=== PATIENT | female | born 1950 | race Caucasian/White ===

== ENCOUNTER → 2020-06-24 11:29 | Outpatient (CLI) | payer MEDICARE, SELFPAY ==
--- NOTE | ~2020-06-24 | MM_ITS ---
EXAMINATION: MM screening monet BI w josie HISTORY: Screening TECHNIQUE: Craniocaudal and mediolateral oblique 3-D tomosynthesis images were obtained and synthetic 2-D images were generated. CAD analysis was submitted and interpreted. COMPARISON: Comparison to multiple prior studies sequentially, with oldest reviewed study dated 04/2013. BREAST PARENCHYMAL COMPOSITION: There are scattered areas of fibroglandular density. FINDINGS: There is no evidence of suspicious mass, calcification, or architectural distortion to sugg est malignancy in either breast. There has been no suspicious interval change. IMPRESSION: 1. No mammographic evidence of malignancy. 2. Recommend routine screening mammography in one year. BI-RADS Category 1: Negative Reviewed, dictated and finalized at location A.
== END ==
PROVIDERS: PCP Physician Assistant; Visit Provider Physician Assistant
DX: Z12.31 Encounter for screening mammogram for malignant neoplasm of breast (principal)
CPT/HCPCS: 77063; 77067

== ENCOUNTER → 2021-06-29 09:59 | Outpatient (CLI) | payer MEDICARE, SELFPAY ==
--- NOTE | ~2021-06-29 | MM_ITS ---
EXAMINATION: MM screening [facility] BI w josie HISTORY: Screening mammogram TECHNIQUE: Craniocaudal and mediolateral oblique 3-D tomosynthesis images were obtained and synthetic 2-D images were generated. CAD analysis was submitted and interpreted. COMPARISON: 06/24/2020, 05/03/2019, 12/10/2015 BREAST PARENCHYMAL COMPOSITION: The breasts are almost entirely fatty. FINDINGS: Left breast asymmetries on the mediolateral oblique and appearance similar to comparison ma mmograms. There is no evidence of suspicious mass, calcification, or architectural distortion to sugg est malignancy in either breast. There has been no suspicious interval change. IMPRESSION: 1. No mammographic evidence of malignancy. 2. Recommend routine screening mammography in one year. BI-RADS Category 2: Benign finding(s). Reviewed, dictated and finalized at location A.
== END ==
PROVIDERS: PCP Physician Assistant; Visit Provider Physician Assistant
DX: Z12.31 Encounter for screening mammogram for malignant neoplasm of breast (principal)
CPT/HCPCS: 77063; 77067

== ENCOUNTER → 2022-07-30 12:18 | Outpatient (CLI) | payer MEDICARE, SELFPAY ==
--- NOTE | ~2022-07-30 | DEXA_ITS ---
Bone Density Report Name: ROCÍO HOOPER Age: 72 Sex: Female Ethnicity: White Date of : 1950 Indication: osteopenia; parental hip fracture; height loss; hysterectomy; postmenopausal Referring Provider: LEANNA, VENKAT Study: Bone densitometry was performed. Exam Date: July 30, 2022 Accession number: [id number] Bone Density: Region BMD T-score Z-score Classification AP Spine (L1-L4) 0.828 -2.0 0.1 Osteopenia Femoral Neck (Left) 0.676 -1.6 0.2 Osteopenia Total Hip (Left) 0.956 0.1 1.6 Normal Femoral Neck (Right) 0.643 -1.9 -0.1 Osteopenia Total Hip (Right) 0.818 -1.0 0.5 Normal Total Hip Mean 0.887 -0.5 1.1 Normal World Health Organization criteria for BMD impression classify patients as: Normal (T-score at or above -1.0), Osteopenia (T-score between -1.0 and -2.5), or Osteoporosis (T-score at or below -2.5). 10-year Fracture Risk(1): Major Osteoporotic Fracture 15% Hip Fracture 3.3% Reported Risk Factors: [place] (), Neck BMD=0.643, BMI=41.5, parental fracture (1) FRAX(R) Version 3.08. Fracture probability calculated for an untreated patient. Fracture probability may be lower if the patient has received treatment. Previous Exams: Region Exam Age BMD T-score BMD Change BMD Change Date g/cm2 vs Baseline vs Previous AP Spine(L1-L4) 07/30/2022 72 0.828 -2.0 -0.052* -0.037* 12/10/2015 65 0.865 -1.7 -0.015 0.014 09/19/2013 63 0.851 -1.8 -0.029 -0.029 04/22/2008 57 0.879 -1.5 Total Hip(Left) 07/30/2022 72 0.956 0.1 -0.063* -0.004 12/10/2015 65 0.959 0.1 -0.059* -0.002 09/19/2013 63 0.962 0.2 -0.057 -0.057 04/22/2008 57 1.018 0.6 Total Hip(Right) 07/30/2022 72 0.818 -1.0 -0.181* -0.067* 12/10/2015 65 0.885 -0.5 -0.114* 0.021 09/19/2013 63 0.864 -0.6 -0.134 -0.134 04/22/2008 57 0.999 0.5 *Denotes significance at 95% confidence level, LSC for AP Spine = 0.022 g/cm2, LSC for Total Hip = 0.027 g/cm2 Clinical Information Provided by Patient: Parent has had a hip fracture Has used the following medications: Vitamin D, Calcium Has the following medical conditions: Hysterectomy Patient maximum height was 63 Menopause Age: 49 No regular weight bearing exercise Does not regularly consume dairy products Drinks caffeinated beverages Onset of menses at age 14 Number of
--- NOTE | ~2022-07-30 | MM_ITS ---
EXAMINATION: MM screening [facility] BI w josie HISTORY: Screening mammogram TECHNIQUE: Craniocaudal and mediolateral oblique 3-D tomosynthesis images were obtained and synthetic 2-D images were generated. CAD analysis was submitted and interpreted. COMPARISON: 06/29/2021, 06/24/2020, 05/11/2019 bilateral screening mammogram examinations BREAST PARENCHYMAL COMPOSITION: There are scattered areas of fibroglandular density. FINDINGS: There is no evidence of suspicious mass, calcification, or architectural distortion to sugg est malignancy in either breast. There has been no suspicious interval change. IMPRESSION: 1. No mammographic evidence of malignancy. 2. Recommend routine screening mammography in one year. BI-RADS Category 1: Negative Reviewed, dictated and finalized at location A.
== END ==
PROVIDERS: PCP Physician Assistant; Visit Provider Physician Assistant
DX: Z12.31 Encounter for screening mammogram for malignant neoplasm of breast (principal); Z78.0 Asymptomatic menopausal state; M85.88 Other specified disorders of bone density and structure, other site; M85.852 Other specified disorders of bone density and structure, left thigh; M85.851 Other specified disorders of bone density and structure, right thigh
CPT/HCPCS: 77063; 77067; 77080

== ENCOUNTER → 2023-08-23 10:15 | Outpatient (CLI) | payer MEDICARE, SELFPAY ==
--- NOTE | ~2023-08-23 | MM_ITS ---
EXAMINATION: MM screening [facility] BI w josie HISTORY: Screening mammogram TECHNIQUE: Craniocaudal and mediolateral oblique 3-D tomosynthesis images were obtained and synthetic 2-D images were generated. CAD analysis was submitted and interpreted. COMPARISON: 07/30/2022, 06/29/2021, 06/24/2020 BREAST PARENCHYMAL COMPOSITION:The breasts are almost entirely fatty FINDINGS: Right breast biopsy marker is unchanged. No suspicious mass, calcification, or architectura l distortion are identified in either breast to suggest malignancy. There has been no suspicious inte rval change. IMPRESSION: No mammographic evidence of malignancy. Recommend routine screening mammography in one year. BI-RADS Category 1: Negative Reviewed, dictated and finalized at location .
== END ==
PROVIDERS: PCP Physician Assistant; Visit Provider Physician Assistant
DX: Z12.31 Encounter for screening mammogram for malignant neoplasm of breast (principal)
CPT/HCPCS: 77063; 77067

== ENCOUNTER 2024-10-30 14:56 | Outpatient (CLI) | payer MEDICARE, SELFPAY ==
--- NOTE | ~2024-10-30 | MM_ITS ---
EXAMINATION: MM screening [facility] BI w josie HISTORY: Screening TECHNIQUE: Craniocaudal and mediolateral oblique 3-D tomosynthesis images were obtained and synthetic 2-D images were generated. CAD analysis was submitted and interpreted. COMPARISON: Comparison to multiple prior studies sequentially, with oldest reviewed study dated 05/11. BREAST PARENCHYMAL COMPOSITION: Not dense: There are scattered areas of fibroglandular density. FINDINGS: There is no evidence of suspicious mass, calcification, or architectural distortion to sugg est malignancy in either breast. There has been no suspicious interval change. IMPRESSION: 1. No mammographic evidence of malignancy. 2. Recommend routine screening mammography in one year. BI-RADS Category 1: Negative Reviewed, dictated and finalized at location B. WICH MAKER
--- NOTE | ~2024-10-30 | DEXA_ITS ---
Bone Density Report Name: ROCÍO HOOPER Age: 74 Sex: Female Ethnicity: White Date of : 1950 Indication: postmenopausal; screening for osteoporosis; parental hip fracture; height loss; hysterectomy; Referring Provider: LEANNA, VENKAT Study: Bone densitometry was performed. Exam Date: October 30, 2024 Accession number: [id number] Bone Density: Region BMD T-score Z-score Classification AP Spine(L1-L4) 0.866 -1.6 0.6 Osteopenia Femoral Neck (Left) 0.590 -2.3 -0.4 Osteopenia Total Hip (Left) 0.901 -0.3 1.3 Normal Femoral Neck (Right) 0.563 -2.6 -0.7 Osteoporosis Total Hip (Right) 0.743 -1.6 0.0 Osteopenia Total Hip Mean 0.822 -1.0 0.7 Normal World Health Organization criteria for BMD impression classify patients as: Normal (T-score at or above -1.0), Osteopenia (T-score between -1.0 and -2.5), or Osteoporosis (T-score at or below -2.5). 10-year Fracture Risk: FRAX not reported because: Some T-score for Spine Total or Hip Total or Femoral Neck at or below -2.5 Clinical Information Provided by Patient: Parent has had a hip fracture Has used the following medications: Vitamin D, Calcium Has the following medical conditions: Hysterectomy Patient maximum height was 64 Menopause Age: 49 No regular weight bearing exercise Does not regularly consume dairy products Drinks caffeinated beverages Onset of menses at age 14 Number of children 2 Impression: The patient has osteoporosis, based on the Right Femoral Neck T-score. The patient has risk factors, including: parental hip fracture. Discussion: INCREASED RISK OF FRACTURE. BONE DENSITY IS UNDESIRABLY LOW AT ONE OR MORE SKELETAL SITES, CONSISTENT WITH POSTMENOPAUSAL OSTEOPOROSIS. This patient's lowest T-score meets the World Health Organization's (WHO) criteria for osteoporosis at one or more sites (T-score -2.5 or below). In untreated patients, the risk of osteoporotic fracture increases approximately two-fold for each 1.0 SD decrease in T-score. Low bone density is not the only risk factor for fracture; also consider factors such as patient's age, frailty or poor health, risk of falling, risk of injury, previous osteoporotic fracture, family history of osteoporosis, cigarette smoking, low body weight, etc. Not everyone with low bone mineral density has osteoporosis; osteomalacia and other metabolic bone disorders should also be considered. Patients who have osteoporosis should be evaluated for specific diseases and conditions (secondary causes) that may cause or contribute to bone loss. The [place] Association of Clinical Endocrinologists (AACE) and National Osteoporosis Foundation (NOF) recommend pharmacologic intervention for all postmenopausal women whose T-score is in this range. The patient should follow a healthful lifestyle (good nutrition with adequate calcium and vitamin D, and appropriate weight-bearing exercise). Follow-Up: Consider a repeat BMD and Vertebral Fracture Assessment (VFA) exam in 2 years or sooner if medically necessary, to reassess this patient's status. Reported by: JEN on 10/30/2024 3:43:00 PM. Reviewed, dictated and finalized at location AJai ROB
== END 2024-10-30 14:57 | disposition home or self-care (01) ==
PROVIDERS: PCP Physician Assistant; Visit Provider Physician Assistant
DX: Z12.31 Encounter for screening mammogram for malignant neoplasm of breast (principal); M81.0 Age-related osteoporosis without current pathological fracture; M85.89 Other specified disorders of bone density and structure, multiple sites
CPT/HCPCS: 77063; 77067; 77080

== ENCOUNTER 2025-11-01 13:45 | Outpatient (CLI) | payer MEDICARE, SELFPAY ==
--- NOTE | ~2025-11-01 | MM_ITS ---
EXAMINATION: MM screening monet BI w josie HISTORY: Screening TECHNIQUE: Craniocaudal and mediolateral oblique 3-D tomosynthesis images were obtained and synthetic 2-D images were generated. CAD analysis was submitted and interpreted. COMPARISON: Comparison to multiple prior studies sequentially, with oldest reviewed study dated , 06/24/2020 BREAST PARENCHYMAL COMPOSITION: Not Dense: There are scattered areas of fibroglandular density. FINDINGS: There is no evidence of suspicious mass, calcification, or architectural distortion to suggest malignancy in either breast. IMPRESSION: 1. No mammographic evidence of malignancy. 2. Recommend routine screening mammography in one year. BI-RADS Category 1: Negative Reviewed, dictated and finalized at location A. HAND
--- OUTSIDE RECORDS SUMMARY | 2025-11-01 13:50 | XMS_ITS | Encounter Summary ---
Author Organization [facility] Health Address [address] [place] [address] Care Team Providers Care Medical Specialist Name Role Phone Luis Cano MD Primary Care Provider [phone] Encounter Details Date Type Department Care Team (Late st Contact Info) Description 09/22/2021 Lab Requisition [facility] [address] [place] [address] Everton Marin Jr., MD [address] [place] [address] Social History Tobacco Use Types Packs/Day Years Used Date Smoking Tobacco: Never Smokeless Tobacco: Never Comments No Sex and Gender Information Value Date Recorded Sex Assigned at Not on file Legal Sex Female 4:10 PM CDT Gender Identity Not on file Sexual Orientation Not on file documented as of this encounter Plan of Treatment Not on file documented as of this encounter Procedures Procedure Name Priority Date/Time Associated Diagnosis Comments DERMATOPATHOLOGY Routine 09/21/2021 3:33 AM CORONER/MEDICAL EXAMINER documented in this encounter Results * DERMATOPATHOLOGY (09/21/2021 3:33 AM CORONER/MEDICAL EXAMINER) Case Report Dermatopathology Report Case: [id number] Authorizing Provider: Everton Marin Jr., MD Collected: 09/21/2021 03:33 AM Ordering Location: [facility] Lab Received: 09/22/2021 01:47 PM Pathologist: Kiersten Francis MD Specimen: Skin, right medial superior chest 3:34 PM [facility] DERMATOPATHOLOGY LABORATORY Final Diagnosis Specimen A. SKIN, right medial superior chest: SEBORRHEIC KERATOSIS, IRRITATED AND INFLAMED (L82.0) 3:34 PM [facility] DERMATOPATHOLOGY LABORATORY at [address]34 CORONER/MEDICAL EXAMINER Clinical History Inflamed seborrheic keratosis vs verruca vulgaris vs squamous cell carcinoma. 3:34 PM [facility] DERMATOPATHOLOGY LABORATORY Gross Description Specimen A: Received is one formalin filled container labeled with the patient's name and designated right medial superior chest. The specimen consists of a shave biopsy measuring 6x6x5 mm, bisected. Jar 0+. 3:34 PM [facility] DERMATOPATHOLOGY LABORATORY Microscopic Description Specimen A. SKIN, right medial superior chest: Sections show acanthosis, papillomatosis, hyperkeratosis, and squamous eddies. There is a lymphohistiocytic infiltrate within the papillary dermis. 3:34 PM [facility] DERMATOPATHOLOGY LABORATORY Disclaimer An external and internal positive and negative controls are appropriate for the histochemical, immunohistochemical and immunofluorescence stain(s) in this case (if any), except where stated explicitly. The performance characteristics of the stain(s) cited in this report were developed and its performance characteristic determined by the Dermatopathology Laboratory at [facility], directed by Dr. Kelle Gee. These tests need not be, and therefore are not, approved by the [place] Food and Drug Administration. The tests are used for clinical purposes. Billing Codes Specimen Charges Stain Charges 34009 1 3:34 PM [facility] DERMATOPATHOLOGY LABORATORY Embedded Images 3:34 PM [facility] DERMATOPATHOLOGY LABORATORY Pathology/Cytolo gy TISSUE SPECIMEN FROM SKIN / Unknown 09/21/2021 3:33 AM CORONER/MEDICAL EXAMINER 09/22/2021 1:47 PM [facility] us Everton Marin Jr., MD LAB - PATHOLOGY/CYTOLOG Y ORDERABLES Final Result DERMATOPATHOLOGY LABORATORY [facility] - Department of Dermatology [facility] Medicine [address] [place] [address], [address] [phone] documented in this encounter Visit Diagnoses Not on filedocumented in this encounter Care Teams Medical Specialist Relationship Specialty Start Date End Date Luis Cano MD [address] [place] [id number] PCP - General 05/16/18 documented as of this encounter
--- OUTSIDE RECORDS SUMMARY | 2025-11-01 13:50 | XMS_ITS | Clinical Summary ---
Author Organization [facility] Address [address] [place] [address] Care Team Providers Care Prorate Clerk Name Role Phone Luis Cano MD Primary Care Provider [phone] Source Comments [facility] [employer]non-owned Affiliates and Associated Physician Practices is amultiple site organization consisting of ambulatory clinics and hospital sitesin [place], [place], [place] and [place]. This disclosure is being madepursuant to the Care Everywhere program and may not contain all information available regarding this patient. Last updated 18.[facility] [employer] Allergies No known active allergies Medications * Be aware that medications may not be up to date on this document. Alwaysverify current medications with the patient. LISINOPRIL PO Active OMEPRAZOLE PO Active PRAVASTATIN SODIUM PO Active HYDRALAZINE-HCTZ PO Active Social History Tobacco Use Types Packs/Day Years Used Date Smoking Tobacco: Never Smokeless Tobacco: Never Comments No Sex and Gender Information Value Date Recorded Sex Assigned at Not on file Legal Sex Female 4:10 PM CDT Gender Identity Not on file Sexual Orientation Not on file Last Filed Vital Signs Vital Sign Reading Time Taken Comments Blood Pressure 130/82 08/07/2018 5:40 PM CDT Pulse 69 08/07/2018 5:40 PM CDT Temperature 37 C (98.6 F) 08/07/2018 5:40 PM CDT Respiratory Rate 18 08/07/2018 5:40 PM CDT Oxygen Saturation 98% 08/07/2018 5:40 PM CDT Inhaled Oxygen Concentration - - Weight 99.8 kg (220 lb) 08/07/2018 5:40 PM CDT Height 157.5 cm (5' 2) 08/07/2018 5:40 PM CDT Body Mass Index 40.24 08/07/2018 5:40 PM CDT Plan of Treatment Health Maintenance Due Date Last Done Comments BONE DENSITY TESTING 1950 COLOGUARD (AGES 45-75) - COL ON CA SCREENING 1950 COLON MONITORING 1950 COLONOSCOPY - COLON CA SCREENING 1950 CT COLONOGRAPHY - COLON CA SCREENING 1950 Colorectal Cancer Screening 1950 FIT - COLON CA SCREENING 1950 FLEX SIG - COLON CA SCREENING 1950 MAMMOGRAM 1950 HEPATITIS C SCREENING 07/07/1970 DTAP/TDAP/TD VACCINES (1 - Tdap) 1971 PNEUMOCOCCAL VACCINE 50+ (1 of 1 - PCV) 2002 Respiratory Syncytial Virus (RSV) Vaccine Pt: or over 60 yrs (1 - Risk 50-74 years 1-dose series) 2002 ZOSTER VACCINE (1 of 2) 2002 SCREENING FOR DIABETES 08/07/2018 DEPRESSION SCREENING 11/14/2024 COVID-19 VACCINE (1 - 2024-2 6 season) 2025 INFLUENZA VACCINE (#1) 2025 HEPATITIS B VACCINE Aged Out No longe r eligible based on patient's age to complete this topic HIB VACCINE Aged Out No longer eligi ble based on patient's age to complete this topic HPV VACCINE Aged Out No longer eligi ble based on patient's age to complete this topic MENINGOCOCCAL (Group B) VACC INE SHARED DECISION-MAKING Aged Out No longer eligibl e based on patient's age to complete this topic MENINGOCOCCAL GROUPS A/C/Y/W VACCINE Aged Out No longer eligible b ased on patient's age to complete this topic Insurance MEDICARE AETNA MEDICARE MEDICARE SUPPLEMENT PAYOR GENERIC MEDICARE Care Teams Prorate Clerk Relationship Specialty [place] [address] [place] [phone] PCP - General 05/16/18
--- OUTSIDE RECORDS SUMMARY | 2025-11-01 13:50 | XMS_ITS | Clinical Summary ---
Author Organization [facility] Address [address], [address] [address] Phone Care Team Providers Care Deep Fryer Assembler Name Role Phone Luis Cano MD Primary Care Provider [phone] Prosper Roberts DO Unavailable [phone] Allergies No known active allergies Medications Lisinopril 30 MG Tablet Take 30 mg by mouth daily. 3 03/07/2018 Active hydroCHLOROthia zide 25 MG Tablet Take 25 mg by mouth daily. 0 03/07/2018 Active KLOR-CON 10 10 MEQ Tablet Controlled Release TAKE 1 TABLET BY MOUTH EVERY DAY WITH FOOD 3 03/07/2018 Active pravastatin (PRAVACHOL) 40 MG Tablet Take 40 mg by mouth daily. 1 03/07/2018 Active calcium 600 MG Tablet Take 1,200 mg by mouth daily. Active Cholecalciferol (VITAMIN D-3 PO) Take 2,000 Units by mouth daily. Active Lysine 1000 MG Tablet Take 1 Tab by mouth daily. Active MAGNESIUM PO Take 400 mg by mouth daily. Active Multiple Vitamins-Minera ls (MULTIVITAMIN PO) Take 1 Tab by mouth daily. Active omeprazole (PriLOSEC) 40 MG CAPSULE DELAYED RELEASE Take 1 Capsule by mouth daily. 90 Capsule 12/31/2020 Active Family History Medical History Relation Name Comments Melanoma Father Alzheimer's Disease Mother Cancer Paternal Aunt breast Lung Cancer Sister Relation Name Status Comments Father Mother Alive Paternal Aunt Sister Social History Tobacco Use Types Packs/Day Years Used Date Smoking Tobacco: Never Smokeless Tobacco: Never Alcohol Use Standard Drinks/Week Comments Yes 0 (1 standard drink = 0.6 oz pur e alcohol) rarely PHQ-2 Answer Date Recorded PHQ-2 Score 0 2019 Comments No Sex and Gender Information Value Date Recorded Sex Assigned at Not on file Legal Sex Female 10:31 AM CDT Gender Identity Not on file Sexual Orientation Not on file Last Filed Vital Signs Vital Sign Reading Time Taken Comments Blood Pressure 138/88 09/11/2018 11:54 AM CDT Pulse 59 09/11/2018 10:57 AM CDT Temperature 36 C (96.8 F) 09/11/2018 11:54 AM CDT Respiratory Rate 15 09/11/2018 11:54 AM CDT Oxygen Saturation 99% 09/11/2018 11:54 AM CDT Inhaled Oxygen Concentration - - Weight 102.1 kg (225 lb) 09/11/2018 10:57 AM CDT Height 157.5 cm (5' 2) 08/07/2018 11:00 AM CDT Body Mass Index 41.15 08/07/2018 11:00 AM CDT Plan of Treatment Health Maintenance Due Date Last Done Comments Hepatitis C Virus (HCV) Screening 1950 TdaP Immunization 1950 Cologuard 1997 Immunochemical Fecal Occult Blood 1997 Pneumococcal Immunization (5 0+ years) (1 of 1 - PCV) 2002 Zoster Immunization (1 of 2) 2002 Medicare Initial AWV [id number] 06/14/2018 Influenza Immunization (#1) 2025 SARS-COV-2 Immunization ( season) 2025 09/07/2021, 02/04/2021, 01/07/2021 Respiratory Syncytial Virus (RSV) Immunization (Adult) (1 - 1-dose 75+ series) 2027 Colonoscopy 03/06/2028 03/06/2018 Colorectal Cancer Screening 03/06/2028 Hepatitis B Immunization Aged Out No longer eligible based on patient's age to complete this topic Human Papillomavirus (HPV) Immunization (No Doses Required) Completed Meningococcal Immunization (ACWY) Aged Out No longer eligible b ased on patient's age to complete this topic Rotavirus Immunization Aged Out No lo nger eligible based on patient's age to complete this topic Procedures Procedure Name Priority Date/Time Associated Diagnosis Comments HM COLONOSCOPY Routine 03/06/2018 from Last 3 Months or Most Recently Relevant to Health Maintenance Results * COLONOSCOPY (03/06/2018) Prosper Roberts DO PROCEDURE/MINOR SURGICAL ORDERA BLES Final Result from Last 3 Months or Most Recently Relevant to Health Maintenance Insurance MEDICARE CIGNA MEDICARE SUP Care Teams Deep Fryer Assembler Relationship Specialty Start Date End Date Luis Cano MD PCP - General Internal Medicine 08/03/17 Prosper Roberts DO Consulting Physician Gastroenterology 03/06/18
--- OUTSIDE RECORDS SUMMARY | 2025-11-01 13:51 | XMS_ITS | Clinical Summary ---
Author Organization [facility] [address] Address [address] [place] [phone] Care Team Providers Care Land Developer Name Role Phone Sherri Varner Primary Care Pr ovider Allergies No known active allergies Medications atorvastatin (LIPITOR) 40 mg tablet Take 1 tablet (40 mg total) by mouth daily [address] (VOLTAREN) 75 mg EC tablet 022 Active hydroCHLOROthia zide (HYDRODIURIL) 25 mg tablet hydrochlorothiazide 25 mg tablet TAKE 1 TABLET BY MOUTH EVERY DAY 018 Active lisinopriL (PRINIVIL,ZESTR IL) 30 mg tablet lisinopril 30 mg tablet TAKE 1 TABLET BY MOUTH EVERY DAY 018 Active lysine 1,000 mg tablet Take 1 tablet by mouth daily Active omeprazole (PriLOSEC) 40 mg capsule Take by mouth daily 022 Active potassium chloride ER 10 mEq CR tablet Take 1 tablet/capsule (10 mEq total) by mouth 022 Active mupirocin (BACTROBAN) 2 % ointmentIndicat ions:Cat bite of left hand, initial encounter Apply topically 3 (three) times a day 22 g 022 Active benzonatate (TESSALON) 200 mg capsuleIndicati ons:Acute non-recurrent pansinusitis Take 1 capsule (200 mg total) by mouth 3 (three) times a day as needed for cough 30 capsule 023 Active Active Problems No known active problems Immunizations Immunization Administration Dates Next Due Tdap 10/15/2022 Social History Tobacco Use Types Packs/Day Years Used Date Smoking Tobacco: Never Assessed Comments Unknown Sex and Gender Information Value Date Recorded Sex Assigned at Not on file Legal Sex Female 8:16 AM PRINCIPAL ARCHAEOLOGIST Gender Identity Not on file Sexual Orientation Not on file Last Filed Vital Signs Vital Sign Reading Time Taken Comments Blood Pressure 125/78 08/13/2024 6:42 PM CDT Pulse 102 08/13/2024 6:42 PM CDT Temperature 37 C (98.6 F) 08/13/2024 6:42 PM CDT Respiratory Rate 20 08/13/2024 6:42 PM CDT Oxygen Saturation 98% 08/13/2024 6:42 PM CDT Inhaled Oxygen Concentration - - Weight 101.1 kg (222 lb 12.8 oz) 08/13/2024 6:42 PM CDT Height 157.5 cm (5' 2) 08/13/2024 6:42 PM CDT Body Mass Index 40.75 08/13/2024 6:42 PM CDT Plan of Treatment Health Maintenance Due Date Last Done Comments Breast Cancer Screening-Mammogram 1950 Colon Cancer Screening-Colonoscopy 1950 Depression Screening 1950 Fall Risk Assessment 1950 Hepatitis C Screening 1950 Osteoporosis Screening-Bone Density Scan 1952 Hepatitis B Screening 1970 Pneumococcal vaccine 65+ (1 of 1 - PCV) 2002 Zoster Vaccine (1 of 2) 2002 Well Visit 65+ 2017 Covid-19 Vaccine ( season) 2025 09/07/2021, 02/04/2021, 01/07/2021 Influenza Vaccine (#1) 2025 11/14/2017 DTaP/Tdap/Td Vaccine (2 - Td or Tdap) 10/15/203212/2021 Insurance MEDICARE AETNA SENIOR SUPPLEMENT AETNA SENIOR SUPPLEMENT MEDICARE Care Teams Land Developer Relationship Specialty Start Date End Date Sherri Varner PA PCP - General Physician Safety Deposit Boxes Custodian 10/15/22
--- OUTSIDE RECORDS SUMMARY | 2025-11-01 13:51 | XMS_ITS | Encounter Summary ---
Author Organization [facility] Address [address] [place] [address] Care Team Providers Care Audio Video Repairer Name Role Phone Luis Cano MD Primary Care Provider [phone] Encounter Details Date Type Department Care Team (Late st Contact Info) Description 08/20/2020 Lab Requisition [facility] [address] [place] [id number] [place] [address] [place] [address] Social History Tobacco Use Types Packs/Day Years [...] Priority Date/Time Associated Diagnosis Comments DERMATOPATHOLOGY Routine 08/19/2020 12:0 0 AM CDT documented in this encounter Results * DERMATOPATHOLOGY (08/19/2020 12:00 AM CDT) Case Report Dermatopathology Report Case: [id number] Authorizing Provider: Brissa Garcia MD Collected: 08/19/2020 12:00 AM Ordering Location: [facility] Received: 08/20/2020 12:39 PM Pathologist: Cecilia Guidry MD Specimens: A) - Skin, left medial trapezial neck B) - Skin, left lateral shoulder 0 3:03 PM CDT DERMATOPATHOLOGY LABORATORY Final Diagnosis Specimen A. SKIN, left medial trapezial neck: BASAL CELL CARCINOMA, NODULAR TYPE (C44.41) Specimen B. SKIN, left lateral shoulder: BASAL CELL CARCINOMA, SUPERFICIAL MULTIFOCAL (C44.619) 0 3:03 PM CDT DERMATOPATHOLOGY LABORATORY at 1503 CDT Clinical History A: Basal cell carcinoma vs irritated seborrheic keratosis B: Superficial basal cell carcinoma vs actinic keratosis vs Terrazas's disease 0 3:03 PM CDT DERMATOPATHOLOGY LABORATORY Gross Description Specimen A: Received is one formalin filled container labeled with the patient's name and designated left medial trapezial neck. The specimen consists of a shave biopsy measuring 10x5x1 mm. Jar 0. Specimen B: Received is one formalin filled container labeled with the patient's name and designated left lateral shoulder. The specimen consists of a shave biopsy measuring 11x7x1 mm. Jar 0. 0 3:03 PM CDT DERMATOPATHOLOGY LABORATORY Microscopic Description Specimen A. SKIN, left medial trapezial neck: Within the dermis there are aggregates of basaloid cells with a high nuclear to cytoplasmic ratio and peripheral palisading. Specimen B. SKIN, left lateral shoulder: Attached to the undersurface of the epidermis, there are small aggregates of basaloid cells with a high nuclear to cytoplasmic ratio and peripheral palisading. 0 3:03 PM CDT DERMATOPATHOLOGY LABORATORY Disclaimer An external and internal positive and negative controls are appropriate for the histochemical, immunohistochemical and immunofluorescence stain(s) in this case (if any), except where stated explicitly. The performance characteristics of the stain(s) cited in this report were developed and its performance characteristic determined by the Dermatopathology Laboratory at [facility], directed by Dr. Kelle Gee. These tests need not be, and therefore are not, approved by the [place] Food and Drug Administration. The tests are used for clinical purposes. Billing Codes Specimen Charges Stain Charges 31574 79553 1 1 0 3:03 PM CDT DERMATOPATHOLOGY LABORATORY Embedded Images 0 3:03 PM CDT DERMATOPATHOLOGY LABORATORY Pathology/Cytology TISSUE SPECIMEN FROM SKIN / Unknown 08/19/2020 08/20/2020 12:39 PM CDT Miscellaneous samples (specimen) TISSUE SPECIMEN FROM SKIN / Unknown 08/19/2020 08/20/2020 12:39 PM CDT us Brissa Garcia MD LAB - PATHOLOGY/CYTOLOGY ORDERABLES Final Result DERMATOPATHOLOGY LABORATORY [facility] - Department of Dermatology [facility] Medicine [address] [place] [address], [address] [phone] documented in this encounter Visit Diagnoses Not on filedocumented in this encounter Care Teams Audio Video Repairer Relationship Specialty Start Date End Date Luis Cano MD [address] [place] [id number] PCP - General 05/16/18 documented as of this encounter
== END 2025-11-01 13:46 | disposition home or self-care (01) ==
LOC: ANHFOHIMG 13:48
PROVIDERS: PCP Physician Assistant; Visit Provider Physician Assistant
DX: Z12.31 Encounter for screening mammogram for malignant neoplasm of breast (principal)
CPT/HCPCS: 77063; 77067